=== PATIENT | male | born 1970 ===

== ENCOUNTER 2021-03-25 00:25 | Emergency (ER) | payer SELFPAY ==
[~2021-03-25] VITALS: Ht 167.6 cm; Wt 71.7 kg
[2021-03-25] MEDS ORDERED: LORAZEPAM 2 MG/1 ML VIAL IV ONE (00:45)
[2021-03-25] MEDS ORDERED: HALOPERIDOL LACTATE 5 MG/1 ML VIAL IV ONE (00:45)
[2021-03-25] MEDS ORDERED: diphenhydrAMINE 50 MG/1 ML VIAL IV ONE (00:45)
[2021-03-25] MEDS ORDERED: diphenhydrAMINE 50 MG/1 ML VIAL ONE (00:48)
[2021-03-25] MEDS ORDERED: LORAZEPAM 2 MG/1 ML VIAL ONE (00:48)
[2021-03-25] MEDS ORDERED: HALOPERIDOL LACTATE 5 MG/1 ML VIAL ONE (00:48)
[2021-03-25 01:16] LABS: HEMATOCRIT 44.5 % (36.7-47.1); MEAN CORPUSCULAR HEMOGLOBIN 30.1 uug (23.8-33.4); MEAN CORPUSCULAR VOLUME 89.7 fL (73.0-96.2); PLATELET COUNT (AUTO) 283 K/uL (152-348)
[2021-03-25 01:27] LABS: CARBON DIOXIDE 25 mmol/L (21-32); CHLORIDE 104 mmol/L (98-107); CREATININE 1.3 mg/dL (0.6-1.3); ETHANOL 339 MG/DL (0-0); GLUCOSE 103 mg/dL (74-106); POTASSIUM 3.5 mmol/L (3.5-5.1); UREA NITROGEN, BLOOD 13 mg/dL (7-18)
--- NOTE | 2021-03-25 01:30 | NUR ---
VELVET SCOTT FROM LAB CALLED WITH CRITICAL VALUE FOR ALCOHOL 0.34%, DR. GOODE MADE AWARE.
[2021-03-25 01:31] LABS: ALANINE AMINOTRANSFERASE 44 U/L (16-63); ALKALINE PHOSPHATASE 80 U/L (50-136); ASPARTATE AMINOTRANSFERASE 50 U/L (15-37); BILIRUBIN,DIRECT 0.1 mg/dL (0.0-0.2); BILIRUBIN,TOTAL 0.2 mg/dL (0.2-1.0); TOTAL PROTEIN, SERUM 7.7 g/dL (6.4-8.2)
[2021-03-25 01:32] LABS: ACETAMINOPHEN < 2.0 ug/mL (10-30)
--- NOTE | 2021-03-25 01:45 | NUR ---
Monitoring patient with restraints [id number]. Note restraint charting for more details.
[2021-03-25 01:47] LABS: *BILIRUBIN,URIN NEGATIVE (NEGATIVE); *BLOOD, URINE NEGATIVE (NEGATIVE); *CLARITY,URINE CLEAR (CLEAR); *COLOR,URINE YELLOW (YELLOW); *KETONES,URINE NEGATIVE (NEGATIVE); *UROBILINOGEN,URINE 0.2 E.U./dl (NORMAL); LEUKOCYTE ESTERASE ,URINE NEGATIVE (NEGATIVE); NITRITE, URINE NEGATIVE (NEGATIVE); PH,URINE 5.5 (5.0-8.0); UGLUCOSE NEGATIVE (NEGATIVE)
[2021-03-25 02:02] LABS: *AMPHETAMINE, URINE NEGATIVE (NEGATIVE); *CANNABINOID, URINE POSITIVE (NEGATIVE); *COCCAINE, URINE NEGATIVE (NEGATIVE); *OPIATE, URINE NEGATIVE (NEGATIVE); *PHENCYCLIDINE SCREEN,URINE NEGATIVE (NEGATIVE)
--- NOTE | 2021-03-25 02:30 | NUR ---
Patient intermittently secretes foamy drool which I suction to maintain a patent airway.
--- NOTE | 2021-03-25 06:30 | NUR ---
Patient is still confused after many attempts of reorientating, unable to answer questions.
--- NOTE | 2021-03-25 07:12 | NUR ---
Hands off report given to Tamika VARNER.
--- NOTE | 2021-03-25 07:15 | NUR ---
Restraints removed at this time, patientnoted resting, no behaviors noted
--- NOTE | 2021-03-25 08:31 | NUR ---
Patient able to ambulate to restroom but falls asleep mid conversation, patient assisted back in bed at this time
--- NOTE | 2021-03-25 12:56 | NUR ---
Patient continues to sleep at this time
--- NOTE | 2021-03-25 14:05 | NUR ---
Patient awake at this time, given dry clothing due to current clothing being wet, Patient is alert and oriented. Patient discharged to home in stable condition. Written and verbal after care instructions given. Patient noted walking with steady gait. Patient verbalizes understanding of instructions. Stressed follow up or return to ER for worsening s/s.
[2021-03-25 14:09] VITALS: BP 113/57
--- NOTE | 2021-03-25 14:09 | NUR ---
No IV noted on discharge
== END 2021-03-25 14:00 | disposition home or self-care (01) ==
LOC: ER 00:27
DX: F10.129 Alcohol abuse with intoxication, unspecified (principal); Y90.8 Blood alcohol level of 240 mg/100 ml or more; R74.01 Elevation of levels of liver transaminase levels; Z78.1 Physical restraint status; Y92.410 Unspecified street and highway as the place of occurrence of the external cause
CPT/HCPCS: 36415; 80048; 80076; 80299; 80307; 80320; 81003; 85025; 96374; 96375; 99285; J1200; J1630; J2060; A4663; G0480